=== PATIENT | female | born 1970 | race Caucasian/White ===

== ENCOUNTER 2019-05-16 12:03 | Emergency (ER) | payer BC ==
[~2019-05-16] VITALS: Ht 162.6 cm; Wt 79.4 kg
[2019-05-16 12:21] VITALS: BP_SYST 148
[2019-05-16] MEDS ORDERED: DIPH-TET-PERTUS Vaccine 0.5 ML VIAL (ADACEL) I.M. ONE (12:45)
[2019-05-16] MEDS ORDERED: KETOROLAC TROMETHAMINE 60 MG/2 ML VIAL IM ONE (12:45)
[2019-05-16] MEDS ORDERED: AMOXICILLIN/CLAVULANATE POTASSIUM 500 MG TABLET PO ONE (14:30)
[2019-05-16] MEDS ORDERED: NEOMY SULF/BACITRAC ZN/POLY 28 GM OINT..GM. TP ONE (14:45)
[2019-05-16] MEDS ORDERED: BACITRACIN 1 GM OINT TP ONE (15:35)
[2019-05-16 16:10] VITALS: BP_SYST 109
== END 2019-05-16 16:10 | disposition home or self-care (01) ==
LOC: SED 12:03
DX: S62.619B Displaced fracture of proximal phalanx of unspecified finger, initial encounter for open fracture (principal); S42.411A Displaced simple supracondylar fracture without intercondylar fracture of right humerus, initial encounter for closed fracture; S50.311A Abrasion of right elbow, initial encounter; S80.211A Abrasion, right knee, initial encounter; S01.83XA Puncture wound without foreign body of other part of head, initial encounter; R41.0 Disorientation, unspecified; Z90.710 Acquired absence of both cervix and uterus; V19.9XXA Pedal cyclist (driver) (passenger) injured in unspecified traffic accident, initial encounter; Y92.488 Other paved roadways as the place of occurrence of the external cause; Y93.89 Activity, other specified; Y99.8 Other external cause status
CPT/HCPCS: 12011; 29105; 29130; 70450; 71045; 73080; 73130; 73564; 90471; 90715; 96372; 99284; J1885